=== PATIENT | male | born 1945 | race Caucasian/White ===

== ENCOUNTER 2018-03-17 15:25 | Emergency (ER) | payer MEDICARE ==
[~2018-03-17] VITALS: Ht 177.8 cm; Wt 88.5 kg
[~2018-03-17 15:25] MED LIST: ASPI325EC PO; CRUTCH4 USE; GABA100 PO; HYDACE10B PO; HYDACE5 PO; IBUP800 PO; LEVSOD150 PO; NAPR500 PO; TEMA15 PO
[2018-03-17 15:55] LABS: BASOPHILS ABSOLUTE AUTO 0.05 K/mm3 (0.00-0.23); BASOPHILS PERCENT AUTO 1 % (0-2); EOSINOPHILS ABSOLUTE AUTO 0.27 K/mm3 (0.00-0.68); EOSINOPHILS PERCENT AUTO 4 % (0-6); Hematocrit 41.9 % (37.0-53.0); Hemoglobin 14.7 g/dL (13.5-17.5); IMMATURE GRAN ABSOLUTE AUTO 0.01 K/mm3 (0.00-0.10); IMMATURE GRAN PERCENT AUTO 0 % (0-1); LYMPHOCYTES ABSOLUTE AUTO 1.93 K/mm3 (0.84-5.20); LYMPHOCYTES PERCENT AUTO 27 % (21-46); MONOCYTES ABSOLUTE AUTO 0.54 K/mm3 (0.16-1.47); MONOCYTES PERCENT AUTO 8 % (4-13); Mean Corpuscular HGB 31.4 pg (26.0-34.0); Mean Corpuscular HGB Conc 35.1 g/dL (31.5-36.5); Mean Corpuscular Volume 90 fL (80-100); Mean Platelet Volume 9.2 fL (9.1-12.4); NEUTROPHILS ABSOLUTE AUTO 4.28 K/mm3 (1.96-9.15); NEUTROPHILS PERCENT AUTO 61 % (41-73); Platelet Count 235 K/mm3 (150-400); RDW Coefficient Variation 12.5 % (11.7-14.2); Red Blood Cell Count 4.68 M/mm3 (4.30-5.90); White Blood Cell Count 7.08 K/mm3 (4.00-11.30)
[2018-03-17] MEDS ORDERED: Hydrocodone-Ap1 EA23 PO (15:57)
[2018-03-17] MEDS ORDERED: TERA5 PO (15:58)
[2018-03-17] MEDS ORDERED: Terazosin HCl10 MG (15:58)
[2018-03-17] MEDS ORDERED: CEFU50SU PO (15:58)
[2018-03-17] MEDS ORDERED: ESCI10 PO (15:58)
[2018-03-17 16:20] LABS: Alanine Aminotransfer (ALT/SGP 45 U/L (12-78); Albumin, Blood 3.9 g/dL (3.4-5.0); Albumin/Globulin Ratio 1.2 (0.8-1.8); Alk Phos 79 U/L (50-136); Anion Gap 7 mmol/L (6-16); Aspartate Aminotrans (AST/SGOT 49 U/L (12-37); Bilirubin, Total 0.3 mg/dL (0.1-1.0); Blood Urea Nitrogen 19 mg/dL (8-24); Bun/Creatinine Ratio 19.3 (12.0-20.0); CO2, Blood 24 mmol/L (21-32); Calcium, Blood 9.1 mg/dL (8.5-10.1); Chloride, Blood 109 mmol/L (98-108); Creatinine, Blood 0.99 mg/dL (0.60-1.20); Globulin, Blood 3.3 g/dL (2.2-4.0); Glomerular Filtration Rate >60 (60-); Glucose, Blood 104 mg/dL (70-99); Sodium, Blood 140 mmol/L (136-145); Total Protein, Blood 7.2 g/dL (6.4-8.2); Troponin I <0.015 ng/mL (0.000-0.040)
[2018-03-17] MEDS ORDERED: Nitrostat0.4 MG SL (18:11)
== END 2018-03-17 18:37 | disposition home or self-care (01) ==
LOC: ER 15:25
PROVIDERS: Emergency Medicine
DX: M79.602 Pain in left arm (principal); Z79.899 Other long term (current) drug therapy; Z79.82 Long term (current) use of aspirin; E03.9 Hypothyroidism, unspecified
CPT/HCPCS: 36415; 71046; 80053; 84484; 85025; 93005; 93010; 99284

== ENCOUNTER 2018-04-16 05:38 | Day surgery (SDC) | payer MEDICARE ==
[~2018-04-16] VITALS: Ht 172.7 cm; Wt 87.0 kg
[~2018-04-16 05:38] MED LIST changes: +CEFU50SU PO; +EPIPEN 2-P0.3 MG/0.3 IM; +ESCI10 PO; +Hydrocodone-Ap1 EA23 PO; +Hytrin2 MG PO; +Nitrostat0.4 MG SL; +SLEEP AID25 MG PO; +TERA5 PO; +Terazosin HCl10 MG
[2018-04-16] MEDS ORDERED: LISI5 PO (09:04)
[2018-04-16] MEDS ORDERED: ASPI81CH PO (09:04)
[2018-04-16] MEDS ORDERED: ROSU10TA PO (09:04)
== END 2018-04-16 12:02 | disposition home or self-care (01) ==
LOC: MHTC 05:38
PROC: B2111ZZ Fluoroscopy of Multiple Coronary Arteries using Low Osmolar Contrast (ICD-10-PCS; principal; 2018-04-16)
DX: I25.119 Atherosclerotic heart disease of native coronary artery with unspecified angina pectoris (principal); F17.200 Nicotine dependence, unspecified, uncomplicated; Z79.899 Other long term (current) drug therapy; Z79.82 Long term (current) use of aspirin
CPT/HCPCS: 93454; 99152; 99153; C1769; C1894; J1644; J2250; J3010; J7030; Q9967

== ENCOUNTER 2018-07-22 09:11 | Day surgery (SDC) | payer MEDICARE ==
[~2018-07-22] VITALS: Ht 172.7 cm; Wt 84.8 kg
[~2018-07-22 09:11] MED LIST changes: +ASPI81CH PO; +LISI5 PO; +ROSU10TA PO
[2018-07-22] MEDS ORDERED: NEBI5 (09:56)
== END 2018-07-22 11:49 | disposition home or self-care (01) ==
LOC: ORSCSDS 09:11
PROVIDERS: Internal Medicine Gastroenterology
PROC: 0DBL8ZX Excision of Transverse Colon, Via Natural or Artificial Opening Endoscopic, Diagnostic (ICD-10-PCS; principal; 2018-07-22 10:45)
PROC: 0DBN8ZX Excision of Sigmoid Colon, Via Natural or Artificial Opening Endoscopic, Diagnostic (ICD-10-PCS; principal; 2018-07-22 10:45)
DX: K62.5 Hemorrhage of anus and rectum (principal); D12.3 Benign neoplasm of transverse colon; D12.5 Benign neoplasm of sigmoid colon; K64.4 Residual hemorrhoidal skin tags; K62.89 Other specified diseases of anus and rectum; K57.30 Diverticulosis of large intestine without perforation or abscess without bleeding; Z87.891 Personal history of nicotine dependence; E78.5 Hyperlipidemia, unspecified; I10 Essential (primary) hypertension; E03.9 Hypothyroidism, unspecified; Z79.82 Long term (current) use of aspirin; Z79.899 Other long term (current) drug therapy
CPT/HCPCS: J7120

== ENCOUNTER → 2019-04-14 | Outpatient (CLI) | payer MEDICARE ==
[~2019-04-14] MED LIST changes: +NEBI5
[2019-04-14 16:20] LABS: BASOPHILS ABSOLUTE AUTO 0.06 K/mm3 (0.00-0.23); BASOPHILS PERCENT AUTO 1 % (0-2); EOSINOPHILS ABSOLUTE AUTO 0.21 K/mm3 (0.00-0.68); EOSINOPHILS PERCENT AUTO 3 % (0-6); Hematocrit 41.8 % (37.0-53.0); Hemoglobin 14.5 g/dL (13.5-17.5); IMMATURE GRAN ABSOLUTE AUTO 0.03 K/mm3 (0.00-0.10); IMMATURE GRAN PERCENT AUTO 0 % (0-1); LYMPHOCYTES ABSOLUTE AUTO 1.58 K/mm3 (0.84-5.20); LYMPHOCYTES PERCENT AUTO 19 % (21-46); MONOCYTES ABSOLUTE AUTO 0.74 K/mm3 (0.16-1.47); MONOCYTES PERCENT AUTO 9 % (4-13); Mean Corpuscular HGB 30.5 pg (26.0-34.0); Mean Corpuscular HGB Conc 34.7 g/dL (31.5-36.5); Mean Corpuscular Volume 88 fL (80-100); Mean Platelet Volume 9.6 fL (9.1-12.4); NEUTROPHILS ABSOLUTE AUTO 5.69 K/mm3 (1.96-9.15); NEUTROPHILS PERCENT AUTO 69 % (41-73); Platelet Count 226 K/mm3 (150-400); RDW Coefficient Variation 12.3 % (11.7-14.2); RDW Standard Deviation 39.6 fL (35.1-46.3); Red Blood Cell Count 4.76 M/mm3 (4.30-5.90); White Blood Cell Count 8.31 K/mm3 (4.00-11.30)
[2019-04-14 16:35] LABS: Alanine Aminotransfer (ALT/SGP 53 U/L (12-78); Albumin, Blood 3.8 g/dL (3.4-5.0); Albumin/Globulin Ratio 1.1 (0.8-1.8); Alk Phos 70 U/L (40-126); Anion Gap 10 mmol/L (6-16); Aspartate Aminotrans (AST/SGOT 45 U/L (12-37); Bilirubin, Total 0.4 mg/dL (0.1-1.0); Blood Urea Nitrogen 21 mg/dL (8-24); Bun/Creatinine Ratio 17.2 (12.0-20.0); CO2, Blood 25 mmol/L (21-32); Calcium, Blood 9.3 mg/dL (8.5-10.1); Chloride, Blood 104 mmol/L (98-108); Creatinine, Blood 1.22 mg/dL (0.60-1.20); Globulin, Blood 3.4 g/dL (2.2-4.0); Glomerular Filtration Rate 58 (60-); Glucose, Blood 97 mg/dL (70-99); Potassium, Blood 4.4 mmol/L (3.5-5.5); Sodium, Blood 139 mmol/L (136-145); Total Protein, Blood 7.2 g/dL (6.4-8.2)
[2019-04-14 16:55] LABS: Troponin I <0.017 ng/mL (0.000-0.040)
== END | disposition home or self-care (01) ==
LOC: LAB SHORT 16:15 → LAB EV 16:15
PROVIDERS: Physician Assistant
DX: R07.9 Chest pain, unspecified (principal)
CPT/HCPCS: 80053; 84484; 85025

== ENCOUNTER → 2020-12-10 | Outpatient (CLI) | payer MEDICARE ==
[2020-12-10 14:58] LABS: Source, Urine Clean Catch
[2020-12-10 17:56] LABS: Appearance, Urine Clear (Clear); Bilirubin, Urine Neg (Neg); Blood, Urine Neg (Neg); Color, Urine Yellow (P-Yellow); Glucose Qualitative, Urine Neg (Neg); Ketones, Urine Neg (Neg); Leukocyte Esterase, Urine Neg (Neg); Nitrite, Urine Neg (Neg); Protein, Urine Neg (Neg); Urobilinogen, Urine NORM (Normal)
== END | disposition home or self-care (01) ==
LOC: LAB 14:55 → LAB SHORT 14:55
PROVIDERS: Physician Assistant
DX: N39.0 Urinary tract infection, site not specified (principal)
CPT/HCPCS: 81003; 87086

== ENCOUNTER 2022-02-07 18:23 | Inpatient (IN) | payer MEDICARE ==
[~2022-02-07] VITALS: Ht 172.7 cm; Wt 79.4 kg
[2022-02-07 19:00] LABS: BASOPHILS ABSOLUTE AUTO 0.02 K/mm3 (0.00-0.23); BASOPHILS PERCENT AUTO 0 % (0-2); EOSINOPHILS ABSOLUTE AUTO 0.21 K/mm3 (0.00-0.68); EOSINOPHILS PERCENT AUTO 2 % (0-6); Hematocrit 47.5 % (37.0-53.0); Hemoglobin 16.1 g/dL (13.5-17.5); IMMATURE GRAN ABSOLUTE AUTO 0.04 K/mm3 (0.00-0.10); IMMATURE GRAN PERCENT AUTO 0 % (0-1); LYMPHOCYTES ABSOLUTE AUTO 1.98 K/mm3 (0.84-5.20); LYMPHOCYTES PERCENT AUTO 18 % (21-46); MONOCYTES ABSOLUTE AUTO 0.36 K/mm3 (0.16-1.47); MONOCYTES PERCENT AUTO 3 % (4-13); Mean Corpuscular HGB 30.1 pg (26.0-34.0); Mean Corpuscular HGB Conc 33.9 g/dL (31.5-36.5); Mean Corpuscular Volume 89 fL (80-100); Mean Platelet Volume 9.1 fL (9.1-12.4); NEUTROPHILS ABSOLUTE AUTO 8.62 K/mm3 (1.96-9.15); NEUTROPHILS PERCENT AUTO 77 % (41-73); Platelet Count 215 K/mm3 (150-400); RDW Coefficient Variation 12.2 % (11.7-14.2); RDW Standard Deviation 39.1 fL (35.1-46.3); Red Blood Cell Count 5.35 M/mm3 (4.30-5.90); White Blood Cell Count 11.23 K/mm3 (4.00-11.30)
[2022-02-07 19:19] LABS: Alanine Aminotransfer (ALT/SGP 52 U/L (12-78); Albumin, Blood 4.1 g/dL (3.4-5.0); Albumin/Globulin Ratio 1.2 (0.8-1.8); Alk Phos 76 U/L (50-136); Anion Gap 3 mmol/L (6-16); Aspartate Aminotrans (AST/SGOT 38 U/L (12-37); Bilirubin, Total 0.5 mg/dL (0.1-1.0); Blood Urea Nitrogen 16 mg/dL (8-24); Bun/Creatinine Ratio 16.1 (12.0-20.0); CO2, Blood 28 mmol/L (21-32); Calcium, Blood 9.3 mg/dL (8.5-10.1); Chloride, Blood 108 mmol/L (98-108); Creatinine, Blood 0.99 mg/dL (0.60-1.20); Globulin, Blood 3.3 g/dL (2.2-4.0); Glomerular Filtration Rate >60 (60-); Glucose, Blood 102 mg/dL (70-99); Potassium, Blood 4.1 mmol/L (3.5-5.5); Sodium, Blood 139 mmol/L (136-145); Total Protein, Blood 7.4 g/dL (6.4-8.2)
[2022-02-07 20:20] LABS: Source, Urine Clean Catch
[2022-02-07 20:23] LABS: Appearance, Urine Clear (Clear); Bilirubin, Urine Neg (Neg); Blood, Urine 1+ (Neg); Color, Urine Yellow (P-Yellow); Glucose Qualitative, Urine Neg (Neg); Ketones, Urine Neg (Neg); Leukocyte Esterase, Urine Neg (Neg); Nitrite, Urine Neg (Neg); Protein, Urine 1+ (Neg); Specific Gravity, Urine 1.015 (1.003-1.022); Urobilinogen, Urine NORM (Normal)
[2022-02-07 20:30] LABS: Bacteria Rare /hpf; Squamous Epithelial Cells Rare /hpf (Few); White Blood Cells, Urine 0-2 /hpf (0-5)
[2022-02-07 23:14] LABS: BASOPHILS ABSOLUTE AUTO 0.02 K/mm3 (0.00-0.23); BASOPHILS PERCENT AUTO 0 % (0-2); EOSINOPHILS PERCENT AUTO 0 % (0-6); Hematocrit 42.1 % (37.0-53.0); Hemoglobin 14.5 g/dL (13.5-17.5); IMMATURE GRAN ABSOLUTE AUTO 0.07 K/mm3 (0.00-0.10); IMMATURE GRAN PERCENT AUTO 1 % (0-1); LYMPHOCYTES ABSOLUTE AUTO 1.31 K/mm3 (0.84-5.20); LYMPHOCYTES PERCENT AUTO 9 % (21-46); MONOCYTES ABSOLUTE AUTO 0.62 K/mm3 (0.16-1.47); MONOCYTES PERCENT AUTO 4 % (4-13); Mean Corpuscular HGB 30.9 pg (26.0-34.0); Mean Corpuscular HGB Conc 34.4 g/dL (31.5-36.5); Mean Corpuscular Volume 90 fL (80-100); Mean Platelet Volume 9.1 fL (9.1-12.4); NEUTROPHILS ABSOLUTE AUTO 13.43 K/mm3 (1.96-9.15); NEUTROPHILS PERCENT AUTO 87 % (41-73); Platelet Count 191 K/mm3 (150-400); RDW Coefficient Variation 12.1 % (11.7-14.2); RDW Standard Deviation 39.7 fL (35.1-46.3); White Blood Cell Count 15.45 K/mm3 (4.00-11.30)
[2022-02-08 01:47] LABS: Influenza A, PCR NEGATIVE (NEGATIVE); Influenza B, PCR NEGATIVE (NEGATIVE); Resp Syncytial Virus, PCR NEGATIVE (NEGATIVE); SARS-Cov-2 (COVID-19) PCR, MMC NEGATIVE (NEGATIVE)
[2022-02-08] MEDS ORDERED: METO25ER PO (01:52)
--- NOTE | 2022-02-08 04:57 | NUR ---
PLUMBING MECHANIC SUMMARY NEW ADMIT FROM THE ED TONIGHT. PT ADMITTED FOR POSSIBLE APPENDICITIS. PT AAOX4 AND PLEASANT. REPORTED 10/10 PAIN TO R LOWER ABD WHEN HE ARRIVED TO FLOOR. MEDICATED WITH OXYCODONE 5 MG, PT ABLE TO SLEEP SOON AFTER. NPO SINCE MIDNIGHT IN PREP FOR POSSIBLE PROCEDURE LATER TODAY. VSS, WILL CONTINUE TO MONITOR.
[2022-02-08 06:16] LABS: BASOPHILS ABSOLUTE AUTO 0.03 K/mm3 (0.00-0.23); BASOPHILS PERCENT AUTO 0 % (0-2); EOSINOPHILS ABSOLUTE AUTO 0.01 K/mm3 (0.00-0.68); EOSINOPHILS PERCENT AUTO 0 % (0-6); Hematocrit 45.1 % (37.0-53.0); Hemoglobin 15.4 g/dL (13.5-17.5); IMMATURE GRAN ABSOLUTE AUTO 0.11 K/mm3 (0.00-0.10); IMMATURE GRAN PERCENT AUTO 1 % (0-1); LYMPHOCYTES ABSOLUTE AUTO 1.72 K/mm3 (0.84-5.20); LYMPHOCYTES PERCENT AUTO 8 % (21-46); MONOCYTES ABSOLUTE AUTO 0.76 K/mm3 (0.16-1.47); MONOCYTES PERCENT AUTO 4 % (4-13); Mean Corpuscular HGB 30.2 pg (26.0-34.0); Mean Corpuscular HGB Conc 34.1 g/dL (31.5-36.5); Mean Corpuscular Volume 88 fL (80-100); Mean Platelet Volume 9.5 fL (9.1-12.4); NEUTROPHILS PERCENT AUTO 87 % (41-73); Platelet Count 221 K/mm3 (150-400); RDW Coefficient Variation 12.4 % (11.7-14.2); RDW Standard Deviation 39.7 fL (35.1-46.3); White Blood Cell Count 20.63 K/mm3 (4.00-11.30)
[2022-02-08 06:36] LABS: Anion Gap 11 mmol/L (6-16); Blood Urea Nitrogen 15 mg/dL (8-24); CO2, Blood 21 mmol/L (21-32); Calcium, Blood 9.2 mg/dL (8.5-10.1); Chloride, Blood 107 mmol/L (98-108); Creatinine, Blood 0.88 mg/dL (0.60-1.20); Glomerular Filtration Rate >60 (60-); Glucose, Blood 153 mg/dL (70-99); Sodium, Blood 139 mmol/L (136-145)
--- NOTE | 2022-02-08 08:58 | NUR ---
PATIENT REPORTS HAVING DIFFICULTY VOIDING, HAS FREQUENTLY BEEN TRYING TO VOID BUT ONLY ABLE TO GET 25-[address] NEWMAN AT BEDSIDE, BLADDER SCAN OBTAINED, 711. DR NEWMAN WANTS TO HOLD OFF ON CATHETER FOR NOW, WILL TAKE HIM TO OR THIS AM AND WILL DO CATHETER IN OR.
--- NOTE | 2022-02-08 09:18 | NUR ---
PRE-OP SURGICAL SITE PREVENTION COMPLETED INCLUDING CHG WIPES SHOULDER TO TOES, NOZIN NASAL SWAB TO BOTH NARES, & PERIDEX ORAL RINSE.
--- NOTE | 2022-02-08 09:38 | NUR ---
PT TO OR WITH CYNDIE TURNER & CYNDIE RICE VIA HIS BED.
--- NOTE | 2022-02-08 12:08 | NUR ---
02/08/22 1208 Galdino Gibson ALMARAZ PLACED BY ORD.DXS AFTER PATIENT WENT TO SLEEP WITH STERILE TECHNIQUE AND 14FR COUDE CATHETER. BETADINE PREP. PLACED WITHOUT DIFFICULTY AND INFLATED WITH 10CC STERILE WATER. 1200CC DARK YELLOW CLEAR URINE IN ALMARAZ NOTED AT 1200. NOTIFIED. PT ON SCHEDULED UNASYN TO OR WITH ADDITIONAL DOSE GIVEN AT 1158
--- NOTE | 2022-02-08 13:15 | NUR ---
PATIENT RETURNED TO ROOM FROM OR. VSS ON 3L OR VIA NC. X2 LAP SITES W/ DERMABOND, C/D/I, EMMA DRAIN TO LLQ W/ GAUZE & TEGADERM, C/D/I, DRAINING CLEAR RED FLUID. ALMARAZ IN PLACE DRAINING CLEAR YELLOW URINE.
--- NOTE | 2022-02-08 18:07 | NUR ---
SHIFT SUMMARY NO ACUTE CHANGES SINCE ARRIVAL BACK TO UNIT. VSS ON RA, SATS MAINTAINING >94% ON RA. MOODERATE ABDOMINAL PAIN, MEDICATED X1 PER EMAR. TOLERATING CLEAR LIQUID DIET, DENIES N/V. ALMARAZ IN PLACE, DRAINING CLEAR YELLOW URINE. X2 LAP SITES TO ABDOMEN W/ DERMABOND REMAIN C/D/I. EMMA DRAIN IN PLACE DRAINING SEROSANGUINEOUS FLUID. REMAINS AT BEDIDE, CALL LIGHT IN REACH, WILL REPORT TO ONCOMING RN.
[2022-02-09 04:26] LABS: BASOPHILS ABSOLUTE AUTO 0.01 K/mm3 (0.00-0.23); BASOPHILS PERCENT AUTO 0 % (0-2); EOSINOPHILS PERCENT AUTO 0 % (0-6); Hematocrit 40.3 % (37.0-53.0); Hemoglobin 13.8 g/dL (13.5-17.5); IMMATURE GRAN ABSOLUTE AUTO 0.18 K/mm3 (0.00-0.10); IMMATURE GRAN PERCENT AUTO 1 % (0-1); LYMPHOCYTES ABSOLUTE AUTO 1.46 K/mm3 (0.84-5.20); LYMPHOCYTES PERCENT AUTO 8 % (21-46); MONOCYTES ABSOLUTE AUTO 0.44 K/mm3 (0.16-1.47); MONOCYTES PERCENT AUTO 2 % (4-13); Mean Corpuscular HGB 30.8 pg (26.0-34.0); Mean Corpuscular HGB Conc 34.2 g/dL (31.5-36.5); Mean Corpuscular Volume 90 fL (80-100); Mean Platelet Volume 9.4 fL (9.1-12.4); NEUTROPHILS ABSOLUTE AUTO 16.03 K/mm3 (1.96-9.15); NEUTROPHILS PERCENT AUTO 88 % (41-73); Platelet Count 182 K/mm3 (150-400); RDW Coefficient Variation 12.8 % (11.7-14.2); RDW Standard Deviation 42.2 fL (35.1-46.3); Red Blood Cell Count 4.48 M/mm3 (4.30-5.90); White Blood Cell Count 18.12 K/mm3 (4.00-11.30)
--- NOTE | 2022-02-09 05:47 | NUR ---
RECIEVED HAND OFF FROM Sean MARRUFO RN USING SBAR. LYING IN LOW FOWLERS WITH EYES OPEN AND AT BEDSIDE. AAO X4, SMITH, FOLLOWS ALL COMMANDS. REORIENTED TO ROOM, CALL SYSTEM, AND POC, HE AND SPOUSE VOICE UNDERSTANDING. REFUSES ENCOURAGEMENT TO GET OOB AND AMBULATE, STATES WILL TRY IN AM. RESPIRATIONS EVEN AND UNLABORED ON ROOM AIR. LUNG SOUNDS CLEAR BILATERALLY. ABDOMEN FIRM WITH HYPOACTIVE BOWEL TONES NOTED. ALMARAZ CATH IN PLACE WHILE IN OR D/T URINARY RETENTION IS PATENT, DRAINING CLEAR YELLOW URINE TO GRAVITY. CONTINENT OF BOWEL. RIGHT FA 18G PIV IS PATENT, INFUSING LR AT 100ML/HR. SCD'S TO BLE PER ORDERS. LAP SITES X2 NOTED TO UMBILICAUS AND SUPRA PUBIC AREA. LLQ EMMA DRAIN IN PLACE, WITH DEPRESSED BULB DRAINING SS FLUID. MEDICATED SEVERAL TIMES THIS SHIFT WITH PO PAIN MEDS PER EMAR. AFTER EBB AND JAZMINE OF PAIN BECAME UNBEARABLE TO PT AND WAS TOO SOON FOR PO MEDS, IVP MEDS ADMINISTERED PER EMAR. VOICES IMMEDIATE RELIEF. DENIES FURTHER NEEDS OR WANTS AT THIS TIME. SAFETY MEASURES IN PLACE. WILL CONTINUE TO MONITOR AND ADDRESS NEEDS THEY ARISE. WILL GIVE HAND OFF TO ONCOMING SHIFT USING SBAR.
--- NOTE | 2022-02-09 17:42 | NUR ---
SHIFT SUMMARY POD 1 LAP APPY. TOLERATING PO CLEAR LIQUIDS WELL, DENIES N/V, REPORTS PASSING FLATUS FREQUENTLY & BURPING FREQUENTLY, VANIA BM YET. AMBULATING TO BR WELL & WITHIN ROOM. ALMARAZ CATH IN PLACE D/T RETENTION, ORDERED TO KEEP IN PER DR. NEWMAN. WILL REPORT TO ONCOMING RN.
[2022-02-10 04:40] LABS: BASOPHILS ABSOLUTE AUTO 0.03 K/mm3 (0.00-0.23); BASOPHILS PERCENT AUTO 0 % (0-2); EOSINOPHILS ABSOLUTE AUTO 0.06 K/mm3 (0.00-0.68); EOSINOPHILS PERCENT AUTO 0 % (0-6); Hematocrit 36.2 % (37.0-53.0); Hemoglobin 12.3 g/dL (13.5-17.5); IMMATURE GRAN ABSOLUTE AUTO 0.05 K/mm3 (0.00-0.10); IMMATURE GRAN PERCENT AUTO 0 % (0-1); LYMPHOCYTES ABSOLUTE AUTO 1.99 K/mm3 (0.84-5.20); LYMPHOCYTES PERCENT AUTO 15 % (21-46); MONOCYTES ABSOLUTE AUTO 0.67 K/mm3 (0.16-1.47); MONOCYTES PERCENT AUTO 5 % (4-13); Mean Corpuscular HGB 30.8 pg (26.0-34.0); Mean Corpuscular Volume 91 fL (80-100); Mean Platelet Volume 9.8 fL (9.1-12.4); NEUTROPHILS ABSOLUTE AUTO 10.56 K/mm3 (1.96-9.15); NEUTROPHILS PERCENT AUTO 79 % (41-73); Platelet Count 159 K/mm3 (150-400); RDW Standard Deviation 42.6 fL (35.1-46.3); Red Blood Cell Count 3.99 M/mm3 (4.30-5.90); White Blood Cell Count 13.36 K/mm3 (4.00-11.30)
[2022-02-10 04:58] LABS: Albumin, Blood 2.6 g/dL (3.4-5.0); Anion Gap 5 mmol/L (6-16); Blood Urea Nitrogen 15 mg/dL (8-24); Bun/Creatinine Ratio 17.4 (12.0-20.0); CO2, Blood 25 mmol/L (21-32); Calcium, Blood 8.4 mg/dL (8.5-10.1); Chloride, Blood 110 mmol/L (98-108); Creatinine, Blood 0.86 mg/dL (0.60-1.20); Glomerular Filtration Rate >60 (60-); Glucose, Blood 101 mg/dL (70-99); Phosphorus, Blood 1.8 mg/dL (2.5-4.9); Potassium, Blood 3.9 mmol/L (3.5-5.5); Sodium, Blood 140 mmol/L (136-145)
--- NOTE | 2022-02-10 05:16 | NUR ---
PT CALLED STAFF STATING THAT HE IS EXPERIENCING SHORTNESS OF BREATH. HE STATES THAT IT STARTED ABOUT HALF AN HOUR AGO. ON EXAM, HE HAS CRACKLES IN THE RLL. IV FLUIDS STOPPED. VSS, MAINTAINING SATS ORA. HE DOES HAVE A FLUID IMBALANCE PER CHARTING IN THE COMPUTER. ON-CALL DOCTOR NOTIFIED, ORDERS FOR TROPONING, CHEST X-RAY AND EKG OBTAINED.
--- NOTE | 2022-02-10 07:49 | NUR ---
SHIFT SUMMARY: PAOLA IS A&OX4. VSS, PT REPORTS IMPROVEMENT IN SOB AFTER ADMINISTRATION OF 20 MG OF LASIX. SUNG PATENT, TOLERATING CLEARS WELL, REPORTS FEELING QUITE HUNGRY THIS MORNING. HE IS INDEPENDENT IN THE ROOM, AT BEDSIDE. EMMA WITH MINIMAL DRAINAGE THIS SHIFT, LAP SITES C/D&I. IV TO LEFT HAND PATENT, SALINE LOCKED AFTER ANTIBIOTIC ADMINISTRATION. HE IS LYING IN BED WITH THE CALL LIGHT IN REACH WHICH HE USES APPROPRIATELY. REPORT GIVEN TO DAY SHIFT RN.
--- NOTE | 2022-02-10 16:54 | NUR ---
SHIFT SUMMARY ALERT AND ORIENTED THROUGHOUT SHIFT. TOLERATING CLEAR LIQUIDS. ROUTINE ABX. GOOD OUTPUT PER ALMARAZ CLEAR YELLOW URINE. ABD INCISIONS C/D/I. EMMA WITH SMALL AMOUNT RED OUTPUT. PAIN CONTROLLED WITH PO PAIN MEDS. WALKS IN HALLS WITH SPOUSE. WILL REPORT TO ELECTRONIC SCANNER OPERATOR RN.
[2022-02-11 03:55] LABS: BASOPHILS ABSOLUTE AUTO 0.03 K/mm3 (0.00-0.23); BASOPHILS PERCENT AUTO 0 % (0-2); EOSINOPHILS ABSOLUTE AUTO 0.13 K/mm3 (0.00-0.68); EOSINOPHILS PERCENT AUTO 1 % (0-6); Hematocrit 40.3 % (37.0-53.0); Hemoglobin 13.9 g/dL (13.5-17.5); IMMATURE GRAN ABSOLUTE AUTO 0.07 K/mm3 (0.00-0.10); IMMATURE GRAN PERCENT AUTO 1 % (0-1); LYMPHOCYTES ABSOLUTE AUTO 1.84 K/mm3 (0.84-5.20); LYMPHOCYTES PERCENT AUTO 17 % (21-46); MONOCYTES PERCENT AUTO 6 % (4-13); Mean Corpuscular HGB 30.6 pg (26.0-34.0); Mean Corpuscular HGB Conc 34.5 g/dL (31.5-36.5); Mean Corpuscular Volume 89 fL (80-100); Mean Platelet Volume 9.3 fL (9.1-12.4); NEUTROPHILS ABSOLUTE AUTO 8.17 K/mm3 (1.96-9.15); NEUTROPHILS PERCENT AUTO 75 % (41-73); Platelet Count 187 K/mm3 (150-400); RDW Coefficient Variation 12.7 % (11.7-14.2); RDW Standard Deviation 41.4 fL (35.1-46.3); Red Blood Cell Count 4.54 M/mm3 (4.30-5.90); White Blood Cell Count 10.94 K/mm3 (4.00-11.30)
--- NOTE | 2022-02-11 05:01 | NUR ---
PATIENT REPORTED 9/10 PAIN AT START OF SHIFT, LOCALIZED TO ABDOMEN, RADIATING TOWARD PERINEAL AREA. SHARP QUALITY, ABDOMEN FIRM, TENDER, AND MODERATLY DISTENDED. MEDICATED PER EMAR. EDUCATED PATIENT AND ABOUT S/S OF INFECTION/SEPSIS TO REPORT. PATIENT FINISHED MEAL AFTER APPITITE RETURNED, AMBULATED IN HALLWAY WITH 'S ASSISTANCE REPORTED 5/10 PAIN DURING AMBULATION. WHEN ACTIVITY WAS COMPLETED PATIENT REPORTED 2/10 PAIN WHILE RESTING IN BED. PATIENT REPORTED AWAKENED APPORXIMATELY 0045 BY SEVERE PAIN THEN AMBULATED TO BATHROOM, REPORTED NAUSEA, DIAPHORESIS AND BEING UNABLE TO PASS A BM OR FLATUS. MEDICATED PER EMAR, INCREASED SEROPERULENT DRAINAGE FROM EMMA DRAIN IN LLQ, NO FOUL ODOR, DRESSING WET. DRESSING REPLACED. ABDOMEN FIRM, MODERATLY DISTENDED, TENDER AROUND EMMA DRAIN INSERTION. BOWEL SOUNDS PRESENT THROUGHOUT. PT REPORTED ADEQUATE PAIN CONTROL DURING REASSESSMENT. PATIENT REPORTS DIFFICULTY SLEEPING THROUGHOUT NIGHT, CALL LIGHT WITHIN REACH, PATIENT RESTING ON RIGHT SIDE LAYING POSITION, REPORTS ADEQUATE PAIN CONTROL. PT HAD INCREASED SEROPURULENT DRAINAGE FROM EMMA DRAIN DURING SHIFT. ALMARAZ CATHETHER IN USE, STAT LOCKED ON R. MEDIAL THIGH, URINE DRAINAGE ADEQUATE, TRANSPARENT YELLOW. IV SALINE LOCKED IN LAC. WILL CONTINUE TO MONITOR UNTIL REPORT GIVEN TO DAY SHIFT.
--- NOTE | 2022-02-11 09:00 | NUR ---
DR. NEWMAN AT BEDSIDE, CHANGED DRESSING ON EMMA DRAIN SITE. DRESSING SATURATED W/ YELLOW FLUID. REPLACED W/ GAUZE 4X4 AND MEDIPORE TAPE.
--- NOTE | 2022-02-11 10:46 | NUR ---
EMMA DRESSING SATURATED W/ YELLOW FLUID. REMOVED, CLEANED W/ NS @ REPLACED W/ 4X4 GAUZE & TAPE. DR. NEWMAN AWARE AND STATES IT IS OKAY TO CHANGE IT NEEDED.
--- NOTE | 2022-02-11 16:43 | NUR ---
SHIFT SUMMARY VSS ON RA T/O SHIFT. MOD ABD DISTENTION HAS REMAINED THE SAME. PT HAS STRUGGLED W/ PAIN MANAGEMENT T/O SHIFT, MEDICATED PER EMAR, REPORTS 5-8/10 PAIN TO ABDOMEN. EMMA DRAIN DRESSING CHANGED X3 TIMES, EMMA DRAIN OUTPUT ABOUT 145 AT THIS TIME. ALMARAZ REMAINS IN PLACE, DRAINING CLEAR, DARK YELLOW URINE. UP TO CHAIR X1, ENCOURAGED MOVEMENT & AMBULATION. WILL REPORT TO ONCOMING RN.
--- NOTE | 2022-02-12 06:32 | NUR ---
POD 4 S/P LAP APPY. PT VSS T/O NIGHT. INCISIONS CDI. EMMA DRNG YELLOW FLUID, CONT TO LEAK AROUND SITE. DRESSING CHANGED X2 THIS SHIFT. PT MED FOR PAIN X1 W/REP RELIEF. ABD LESS DISTENDED, PT PASSING FLATUS, HAD 1 BM. PT DENIED N/V. ALMARAZ DRNG YELLOW URINE. PT AMB INDEP IN HALLS W/ AT SIDE.
--- NOTE | 2022-02-12 14:00 | NUR ---
EMMA DRAIN LEAKING AROUND INSERTION. DRESSING CHANGED, AREA CLEANED WITH WATER. CLEAN GAUZE DRESSING PLACED.
--- NOTE | 2022-02-12 15:17 | NUR ---
PATIENT OUT OF ROOM VIA W/C W/ INTERNATIONAL TRADE TEACHER FOR CT SCAN.
--- NOTE | 2022-02-12 15:32 | NUR ---
PATIENT RETURNED TO ROOM. NO ACUTE CHANGES.
--- NOTE | 2022-02-12 18:33 | NUR ---
[facility]/ ARISTIDES LOPEZ RN. GREEN FLUID DRAINING THROUGH TUBING. CONNECTED TO LOW INT SUCTION.
--- NOTE | 2022-02-12 18:54 | NUR ---
SHIFT SUMMARY VSS ON RA, IND IN ROOM W/ ASSISTANCE FORM . MOD ABDOMINAL DISTENTION THAT HAS PROGRESSED T/O SHIFT. TOLERATED FULL LIQUID DIET, DENIES N/V, DENIES FLATUS, & NO BM. STRUGGLED WITH PAIN MANAGEMENT, REPORTS MINIMAL RELIEF WITH ALL PAIN MEDICATIONS. AMBULATED HALLWAYS X2. CT DONE TODAY ABOUT 1600 & DR NEWMAN ORDERED TO PLACE NG TUBE. NG PLACED, TO WALL SUCTIN, LOW INTERMITENT. GREEN/YELLOW FLUID DRAINING AT THIS TIME & PT REPORTS MUCH RELIEF. PT IS NOW NPO W/ ICE CHIPS. ALMARAZ REMAINS IN PLACE & EMMA IN PLACE TO LLQ, DRAINING YELLOW FLUID. WILL REPORT TO ONCIMING RN.
--- NOTE | 2022-02-13 07:46 | NUR ---
POD 5 S/P LAP APPY. PT HAD DIFFICULT NIGHT. NGT PUT OUT 600 ML THICK GREEN DRNG. PT C/O NAUSEA THIS AM, ZOFRAN GIVEN PER EMAR. ABD REMIANS FIRM AND DISTENDED, BT HYPO, PT REP NO FLATUS YET. EMMA HAD 50ML LIGHT YELLOW DRNG, LESS LEAKING AROUND DRAIN. PAIN MGD PER EMAR. IVF AND ABX CONT PER ORDERS. ALMARAZ PATANT DRNG YELLOW URINE. PT SLEPT RESTLESSLY, REP NO SIG HELP FROM BENADRYL. SUPPORTIVE AT BEDSIDE.
--- NOTE | 2022-02-13 08:07 | NUR ---
PT RESTING IN BED, REPORTS BEING "MISERABLE", "NOTHING HELPS WITH PAIN" & REPORTS NOT SLEEPING HARDLY AT ALL T/O THE NIGHT. DRESSING ON EMMA DRAIN SATURATED IN YELLOW FLUID, REMOVED, CLEANED W/ NS & CHANGED. ENCOURAGED MOBILITY/AMBULATION. PT WANTS TO REST AT THIS TIME. REMAINS AT BEDISDE, ALSO ENCOURAGED HER TO GO HOME AND GET SOME REST AND TAKE CARE OF HERSELF WELL. SHE REPORTS BEING VERY CONCERNED AND WORRIED WHEN AWAY FROM HIM.
--- NOTE | 2022-02-13 10:00 | NUR ---
NG TUBE CLAMPED FOR PATIENT TO GO TO IMAGING TO BEGIN SMALL BOWEL FOLLOW STEVEN. IMAGING REPORTED THAT SUCTION CAN NOT BE HOOKED BACK UP UNTIL LATER, AFTER REPEAT IMAGES.
--- NOTE | 2022-02-13 11:22 | NUR ---
DR NEWMAN AT BEDSIDE, REMOVED EMMA DRAIN & COVERED W/ GAUZE & PAPER TAPE. PT TOLERATED WELL.
--- NOTE | 2022-02-13 14:42 | NUR ---
NG TUBE BACK TO LOW INT SUCTION AT THIS TIME. DRAINING DARK GREEN FLUID.
--- NOTE | 2022-02-13 17:51 | NUR ---
SHIFT SUMMARY VSS ON RA. ABDOMEN REMAINS FIRM AND PAINFUL TO PATIENT MOST OF THE SHIFT. NG TUBE WAS CLAMPED FROM ABOUT 1000 TO 1600 TODAY FOR SMALL BOWEL FOLLOW THROUGH. PATIENT FELT "MISERABLE & CRAPPY", UP TO BR MULTIPLE TIMES W/ LIQUID BM'S & REPORTS PASSING FLATUS. WHEN NG TUBE WAS RECONNECTED TO SUCTION, ABOUT 1500ML IMMEDIATELY CAME THROUGH NG * PT FELT RELIEF TO ABDOMEN. EMMA DRAIN WAS REMOVED THIS AM BY DR NEWMAN, GAUZE & TAPE OVER SITE, C/D/I. ALMARAZ REMAINS IN PLACE. PATIENT REMAINS NPO W/ SIPS & CHIPS, DENIES ANY N/V. WILL REPORT TO ONCOMING RN.
--- NOTE | 2022-02-14 05:20 | NUR ---
SUMMARY NO NEW CHANGES. PT PAIN MANAGED WELL PER EMAR. PT NG TUBE DRAING. PT DENIES N/V. PT HAS SLEPT FOR SEVERAL HOURS THIS SHIFT. PT CURRENTLY SLEEPING IN NO DISTRESS. CALL LIGHT IN REACH.
[2022-02-14 08:24] LABS: Hematocrit 45.2 % (37.0-53.0); Hemoglobin 15.2 g/dL (13.5-17.5); Mean Corpuscular HGB 30.6 pg (26.0-34.0); Mean Corpuscular HGB Conc 33.6 g/dL (31.5-36.5); Mean Corpuscular Volume 91 fL (80-100); Mean Platelet Volume 9.5 fL (9.1-12.4); Platelet Count 289 K/mm3 (150-400); RDW Coefficient Variation 12.9 % (11.7-14.2); RDW Standard Deviation 42.9 fL (35.1-46.3); Red Blood Cell Count 4.96 M/mm3 (4.30-5.90); White Blood Cell Count 12.07 K/mm3 (4.00-11.30)
[2022-02-14 08:48] LABS: Anion Gap 5 mmol/L (6-16); BAND PERCENT MAN 2 % (0-8); BASOPHILS PERCENT MAN 0 % (0-2); Blood Urea Nitrogen 21 mg/dL (8-24); Bun/Creatinine Ratio 17.6 (12.0-20.0); CO2, Blood 29 mmol/L (21-32); Calcium, Blood 9.4 mg/dL (8.5-10.1); Chloride, Blood 111 mmol/L (98-108); Creatinine, Blood 1.19 mg/dL (0.60-1.20); EOSINOPHILS PERCENT MAN 0 % (0-6); Glomerular Filtration Rate 59 (60-); Glucose, Blood 99 mg/dL (70-99); LYMPHOCYTES ABSOLUTE MAN 2.41 K/mm3 (0.84-5.20); LYMPHOCYTES PERCENT MAN 20 % (21-46); MONOCYTES ABSOLUTE MAN 1.08 K/mm3 (0.16-1.47); MONOCYTES PERCENT MAN 9 % (4-13); NEUTROPHILS ABSOLUTE MAN 8.56 K/mm3 (1.96-9.15); Potassium, Blood 3.8 mmol/L (3.5-5.5); SEG NEUTROPHILS PERCENT MAN 69 % (41-73); Sodium, Blood 145 mmol/L (136-145); TOTAL CELLS COUNTED 100; Triglycerides 153 mg/dL (30-160)
--- NOTE | 2022-02-14 18:32 | NUR ---
SHIFT SUMMARY PATIENT ALERT AND ORIENTED THROUGHOUT SHIFT. PULLED NG AT BEGINNING OF SHIFT. NG REPLACED AND 850 OUTPUT THIS SHIFT. ABD MOD DISTENDED AND TENDER. SMALL LIQUID GREEN STOOL THIS SHIFT. TOLERATING SIPS OF WATER AND ICE CHIPS. LAP SITES C/D/I. PICC LINE PLACED AND TPN STARTED. ALMARAZ PATENT AND DRAINING. AMBULATED IN ROOM WITH SBA WITH LINES. MEDICATED FOR PAIN IV PRN. WILL REPORT TO IRRIGATIONIST RN.
[2022-02-15 05:37] LABS: Hematocrit 38.9 % (37.0-53.0); Hemoglobin 13.2 g/dL (13.5-17.5); Mean Corpuscular HGB 30.9 pg (26.0-34.0); Mean Corpuscular HGB Conc 33.9 g/dL (31.5-36.5); Mean Corpuscular Volume 91 fL (80-100); Mean Platelet Volume 9.3 fL (9.1-12.4); Platelet Count 250 K/mm3 (150-400); RDW Coefficient Variation 12.7 % (11.7-14.2); RDW Standard Deviation 42.3 fL (35.1-46.3); Red Blood Cell Count 4.27 M/mm3 (4.30-5.90); White Blood Cell Count 12.64 K/mm3 (4.00-11.30)
[2022-02-15 05:49] LABS: Anion Gap 4 mmol/L (6-16); Blood Urea Nitrogen 21 mg/dL (8-24); CO2, Blood 28 mmol/L (21-32); Calcium, Blood 8.4 mg/dL (8.5-10.1); Chloride, Blood 110 mmol/L (98-108); Creatinine, Blood 0.91 mg/dL (0.60-1.20); Glomerular Filtration Rate >60 (60-); Glucose, Blood 118 mg/dL (70-99); Potassium, Blood 3.8 mmol/L (3.5-5.5); Sodium, Blood 142 mmol/L (136-145)
--- NOTE | 2022-02-15 08:26 | NUR ---
SUMMARY I SPOKE WITH DR HARO LAST NIGHT REGARDING PTS CURRENT MED ORDERS AND NOT CLEAR IF CRUSHING SOME AND PUTTING DOWN NG? OR HOLD? ALSO SPOKE REGARDING PT ORDER FOR METOPROLOL,BUT IS EXTENDED RELEASE AND UNABLE TO BE CRUSHED.ALSO DISCUSSED PTS VS WITH DR HARO.DR HARO OK TO HOLD MEDS TONIGHT AND PLANS TO ADDRESS MED ISSUES 02/15 WITH ROUNDING. PT AND ADVISED. PT REPORTS FEELING INCREASED BLOATING TONIGHT COMPARED TO YESTERDAY AFTERNOON, ALTHOUGH OUTPUT OF NG CONT LARGE VOLUME.PT ALSO TOOK ZYPREXA ODT FOR SLEEP AND DILAUDID FOR PAIN AND STILL NOT SLEEPING SOLID.PT REPORTS SEVERAL DAYS OF POOR SLEEP.VERBAL ZYPREXA PRIOR NIGHT EFFECTIVE. VERB SHE FEELS PT IS ALSO WORRYING ABOUT INCREASED BLOATING AND FEELS THAT MAY BE CAUSING SOME OF THE POOR SLEEPING.ALSO, PT C/O SORE THROAT R/T TUBE.DAY RN AGREES TO ADDRESS WITH ROUNDING.
[2022-02-15 08:45] LABS: Magnesium, Blood 2.4 mg/dL (1.6-2.4); Phosphorus, Blood 2.5 mg/dL (2.5-4.9)
--- NOTE | 2022-02-15 19:37 | NUR ---
SHIFT SUMMARY PT A&OX4, VSS/RA, NG LIS W/600 OUT THIS SHIFT, PICC PRIYANK INFUSING ABX PER EMAR AND PPN @ 75 MLS/HR, ALMARAZ PATENT & DRAINING YELLOW URINE, STAT LOCK ON, OFF FLOOR, MULTI SMALL LIQUID BMS TODAY. NPO/SIPS H20 & MEDS WITH SIPS. POD7 LAP APPY, LAP INCISIONS CDI, EMMA INCISION W/GAUZE/TAPE CHANGED 3X THIS SHIFT. REPORT PROVIDED TO DESHAWN AGEE.
--- NOTE | 2022-02-16 04:07 | NUR ---
SHIFT SUMMARY A/O X4- POD8 APPENDECTOMY WITH POSTOP ILEUS. NG TUBE TO LOW INTERMEDIATE SUCTION, DRAINING DARK GREENISH BROWN FLUID. ALMARAZ DRAINING TO GRAVITY. NO NAUSEA OR VOMITING THIS SHIFT. PAIN MANAGED WITH IV PAIN MEDICATION. STAND BY ASSIST TO BEDSIDE COMMODE, VERY SMALL AMOUNT OF BOWEL PASSED X1. PT REPORTS PASSING FLATUS. VITAL SIGNS STABLE. WILL CONTINUE TO MONITOR AND REPORT TO ONCOMING RN.
[2022-02-16 10:01] LABS: Magnesium, Blood 2.9 mg/dL (1.6-2.4)
[2022-02-16 10:04] LABS: Phosphorus, Blood 8.2 mg/dL (2.5-4.9)
--- NOTE | 2022-02-16 18:43 | NUR ---
SHIFT SUMMARY POD8 LAP APPY SITES CDI, EMMA SITE W/GAUZE/TAPE SEROUS DC, NG LIS WITH 400 GREEN FLUID OUT. ALMARAZ PATENT & DRAINING YELLOW URINE, STAT LOCK ON, OFF FLOOR. BM TODAY-MEDIUM, GREEN LIQUID/SOFT UNFORMED. PICC PRIYANK, FLUSHES/INFUSES DOES NOT DRAW; IV ABX INFUSED PER EMAR; PPN @ 94 MLS/HR. PAIN MANAGED WITH 1 MG DILAUDID PRN, GIVEN 3X TODAY. AT BEDSIDE. REPORT PROVIDED TO DESHAWN AGEE.
[2022-02-17 04:54] LABS: BASOPHILS ABSOLUTE AUTO 0.05 K/mm3 (0.00-0.23); BASOPHILS PERCENT AUTO 0 % (0-2); EOSINOPHILS ABSOLUTE AUTO 0.53 K/mm3 (0.00-0.68); EOSINOPHILS PERCENT AUTO 4 % (0-6); Hemoglobin 14.3 g/dL (13.5-17.5); IMMATURE GRAN ABSOLUTE AUTO 0.07 K/mm3 (0.00-0.10); IMMATURE GRAN PERCENT AUTO 1 % (0-1); LYMPHOCYTES ABSOLUTE AUTO 2.79 K/mm3 (0.84-5.20); LYMPHOCYTES PERCENT AUTO 22 % (21-46); MONOCYTES ABSOLUTE AUTO 0.67 K/mm3 (0.16-1.47); MONOCYTES PERCENT AUTO 5 % (4-13); Mean Corpuscular HGB 30.2 pg (26.0-34.0); Mean Corpuscular HGB Conc 33.3 g/dL (31.5-36.5); Mean Corpuscular Volume 91 fL (80-100); Mean Platelet Volume 9.5 fL (9.1-12.4); NEUTROPHILS ABSOLUTE AUTO 8.63 K/mm3 (1.96-9.15); NEUTROPHILS PERCENT AUTO 68 % (41-73); Platelet Count 261 K/mm3 (150-400); RDW Coefficient Variation 12.5 % (11.7-14.2); RDW Standard Deviation 41.6 fL (35.1-46.3); Red Blood Cell Count 4.74 M/mm3 (4.30-5.90); White Blood Cell Count 12.74 K/mm3 (4.00-11.30)
[2022-02-17 05:10] LABS: Magnesium, Blood 2.5 mg/dL (1.6-2.4); Phosphorus, Blood 3.1 mg/dL (2.5-4.9)
--- NOTE | 2022-02-17 05:11 | NUR ---
SHIFT SUMMARY A/O X4- STAND BY ASSIST DUE TO LINES AND DRAINS. POD9 LAP APPY WITH POST OP ILEUS. NG TUBE DRAINING GREEN FLUID ON INTERMITTENT SUCTION, 500ML THIS SHIFT, IRRIGATED DUE TO SEDEMENT IN TUBE. ALMARAZ DRAINING TO GRAVITY, CATH CARE PERFORMED. PAIN BEING MANAGED WITH IV PAIN MEDICATION. ONE SMALL BOWEL MOVEMENT REPORTED DURING DAY SHIFT, PT STATES HE HAS NOT PASSED FLATUS SINCE YESTERDAY AM. PT STATES ABDOMEN FEELS MORE DISTENDED THIS AM. VSS. WILL CONTINUE TO MONITOR AND REPORT TO ONCOMING RN.
[2022-02-17 05:25] LABS: Anion Gap 6 mmol/L (6-16); Blood Urea Nitrogen 12 mg/dL (8-24); Bun/Creatinine Ratio 15.3 (12.0-20.0); CO2, Blood 26 mmol/L (21-32); Calcium, Blood 8.9 mg/dL (8.5-10.1); Chloride, Blood 106 mmol/L (98-108); Creatinine, Blood 0.78 mg/dL (0.60-1.20); Glomerular Filtration Rate >60 (60-); Glucose, Blood 117 mg/dL (70-99); Potassium, Blood 4.1 mmol/L (3.5-5.5); Sodium, Blood 138 mmol/L (136-145)
--- NOTE | 2022-02-17 16:02 | NUR ---
PATIENT TO DAY SURGERY VIA QUENTIN Cedeno/ CYNDIE HARTLEY. NG TUBE CLAMPED AT THIS TIME.
--- NOTE | 2022-02-18 04:19 | NUR ---
SHIFT SUMMARY A/O X4- POST OP DAY 10 LAP APPY WITH POST OP ILEUS, AND POST OP DAY 1 FOR LAP DRAINAGE OF INTRA-ABDOMINAL ABCESS. LAP SITES X4 WILDA WITH DERMABOND. NG TUBE TO LOW INTERMITTENT SUCTION, DRAINING BROWNISH RED FLUID. NPO AT THIS TIME. ALMARAZ DRAINING YELLOW URINE. TPN RUNNING. VITAL SIGNS STABLE. PAIN MANAGED WITH IV PAIN MEDICATION. PATIENT PLEASANT AND COOPERATIVE WITH CARE. WILL CONTINUE TO MONITOR AND REPORT TO ONCOMING RN.
[2022-02-18 05:25] LABS: BASOPHILS ABSOLUTE AUTO 0.02 K/mm3 (0.00-0.23); BASOPHILS PERCENT AUTO 0 % (0-2); EOSINOPHILS PERCENT AUTO 0 % (0-6); Hematocrit 41.3 % (37.0-53.0); Hemoglobin 13.7 g/dL (13.5-17.5); IMMATURE GRAN PERCENT AUTO 1 % (0-1); LYMPHOCYTES ABSOLUTE AUTO 1.34 K/mm3 (0.84-5.20); LYMPHOCYTES PERCENT AUTO 9 % (21-46); MONOCYTES ABSOLUTE AUTO 0.54 K/mm3 (0.16-1.47); MONOCYTES PERCENT AUTO 4 % (4-13); Mean Corpuscular HGB 30.3 pg (26.0-34.0); Mean Corpuscular HGB Conc 33.2 g/dL (31.5-36.5); Mean Corpuscular Volume 91 fL (80-100); Mean Platelet Volume 9.5 fL (9.1-12.4); NEUTROPHILS ABSOLUTE AUTO 13.29 K/mm3 (1.96-9.15); NEUTROPHILS PERCENT AUTO 87 % (41-73); Platelet Count 270 K/mm3 (150-400); RDW Coefficient Variation 12.4 % (11.7-14.2); Red Blood Cell Count 4.52 M/mm3 (4.30-5.90); White Blood Cell Count 15.29 K/mm3 (4.00-11.30)
[2022-02-18 05:55] LABS: Anion Gap 5 mmol/L (6-16); Blood Urea Nitrogen 11 mg/dL (8-24); Bun/Creatinine Ratio 14.7 (12.0-20.0); CO2, Blood 25 mmol/L (21-32); Chloride, Blood 106 mmol/L (98-108); Creatinine, Blood 0.75 mg/dL (0.60-1.20); Glomerular Filtration Rate >60 (60-); Glucose, Blood 144 mg/dL (70-99); Potassium, Blood 4.6 mmol/L (3.5-5.5); Sodium, Blood 136 mmol/L (136-145)
--- NOTE | 2022-02-18 17:25 | NUR ---
SHIFT SUMMARY POD 10 LAP APPY, POD1 EXP LAP W/ ABCESS REMOVAL. X4 LAP SITES TO ABDOMEN W/ DERMABOND, C/D/I. ABDOMEN REMAINS MOD DISTENTED & TENDER TO PALPITATION. BOWEL TONES REMAIN HYPOACTIVE. PATIENT IS NPO W/ ICE CHIPS & MEDS OK. DENIES N/V. NG TUBE IN PLACE TO LOW INTERMITENT SUCTION, CLAMPED FOR WALKS T/O DAY. MINIMAL DRAINAGE, DARK RED/BROWN & THICK THIS AM TO THIN & GREEN THIS AFTERNOON. REPORTS FLATUS ABOUT 1630 & BURPING FREQUENTLY. MINIMAL ABDOMINAL PAIN T/O SHIFT, MEDICATED PER EMAR. ALMARAZ REMIANS IN PLACE. WILL REPORT TO ONCOMING RN.
--- NOTE | 2022-02-19 04:20 | NUR ---
SHIFT SUMMARY NO ACUTE CHANGES THIS SHIFT. NGT TO LIS WITH GREEN DRAINAGE. LAP SITES TO ABD REMAIN CDI. PT REPORTS PASSING FLATUS AND DENIES NAUSEA. TPN INFUSING PER ORDERS. ALMARAZ INTACT. PT AMBULATES INDEP IN HALLS WITH SPOUSE AT SIDE. 1 MG IV DILAUDID FOR PAIN PRN. USES CALL LIGHT APPROPRIATELY.
--- NOTE | 2022-02-19 09:34 | NUR ---
DR. NEWMAN CAME IN EARLIER THIS MORNING. SHE WANTS TO HAVE PATIENT'S NG TUBE CLAMPED UNTIL THE AFTERNOON TO SEE IF HE CAN TOLERATE CLEAR LIQUID PO INTAKE WITHOUT NAUSEA/VOMITING. SO FAR PATIENT IS TOLERATING SMALL AMOUNTS OF PO INTAKE. ENCOURAGED PATIENT TO TAKE IT SLOW WITH LIQUIDS. PATIENT HAD A BM THAT WAS LOOSE WITH GREEN COLOR THIS MORNING WELL. PATIENT IS ASLEEP IN BED AT THIS TIME. AT BEDSIDE. CALL LIGHT WITHIN REACH.
--- NOTE | 2022-02-19 13:53 | NUR ---
PATIENTS NG TUBE FELL OUT. PRIOR TO FALLING OUT THE ONLY OUTPUT WAS THE PINK JELLO HE HAD FOR LUNCH. PATIENT DENIES NAUSEA/VOMITING. CALLED DR. NEWMAN AND REPORTED WHAT HAPPENED. SHE SAID TO KEEP THE NG TUBE OUT. PATIENT HAS CALL LIGHT WITHIN REACH.
--- NOTE | 2022-02-19 17:53 | NUR ---
SHIFT SUMMARY: POD 11 FOR LAP APPY, POD 2 FOR I&D PT AOX4. PAIN MANAGED WELL WITH TYLENOL. 4 LAP SITES ON ABD C/D/I. NG TUBE DISCONTINUED, TOLERATING PO INTAKE, NO COMPLAINTS OF NAUSEA OR VOMITING. HAD A SMALL BOWEL MOVEMENT THIS MORNING GREEN/LOOSE. TPN INFUSING PER ORDERS. ALMARAZ IN PLACE DRAINING YELLOW/CLEAR. PT AMBULATES IN [place] INDEPENDENTLY WITH SPOUSE. RESTING IN BED, CALL LIGHT WITHIN REACH. PLAN IS TO ADVANCE DIET TOLERATED. KEEP ENCOURAGING BOWEL MOVEMENTS AND AMBULATION
--- NOTE | 2022-02-20 03:58 | NUR ---
PT IS A&OX4, INDEPENDENT IN ROOM AND IS ABLE TO MAKE NEEDS KNOWN. POST OP DAY 3 FOR I&D AFTER LAP APPY. NO ACUTE CHANGES THIS SHIFT. PT STATES THAT THEY ONLY WANT TYLENOL FOR PAIN CONTROL, THEY DO NOT LIKE HOW NARCOTIC PAIN MEDS MAKE THEM FEEL. PT MOVING TO A REGULAR DIET, CURRENTLY ON TPN BUT WILL TRANSFER TO SOLIDS IN THE AM. ALMARAZ IS PRODUCTIVE AND WILL BE D/C'D IN THE AM. PT RESTS BETWEEN CARES BUT STATES THAT HE IS UNABLE TO SLEEP. WILL CONTINUE TO MONITOR.
--- NOTE | 2022-02-20 12:38 | NUR ---
DC SUMMARY Pt is being discharged home with his . He is a/o x 4 with no c/o pain. He has been independent in his room. His angulo was removed this morning per Dr Menjivar and he was able to void with no problem. After his ABO infused his PICC line was removed with no issue. His surgical sites are open to air but remain approximated with no s/s of infection. He is ating and drinking well. No changes were made to his medications. All the instructions were reviewed with him and his and all questions were answered. He is up getting dressed and his is here to take him home.
== END 2022-02-20 12:44 | disposition home or self-care (01) | DRG 341 ==
LOC: ER 18:23 → SURS 18:24
PROVIDERS: Emergency Medicine; Student in an Organized Health Care Education/Training Program; Surgery; ADMIT Surgery
PROC: 05HY33Z Insertion of Infusion Device into Upper Vein, Percutaneous Approach (ICD-10-PCS; 2022-02-08)
PROC: 0DTJ4ZZ Resection of Appendix, Percutaneous Endoscopic Approach (ICD-10-PCS; principal; 2022-02-08 11:15)
PROC: 0D9840Z Drainage of Small Intestine with Drainage Device, Percutaneous Endoscopic Approach (ICD-10-PCS; 2022-02-13)
DX: K57.30 Diverticulosis of large intestine without perforation or abscess without bleeding (principal); K65.0 Generalized (acute) peritonitis; K56.609 Unspecified intestinal obstruction, unspecified as to partial versus complete obstruction; K91.89 Other postprocedural complications and disorders of digestive system; K56.7 Ileus, unspecified; E03.9 Hypothyroidism, unspecified; I25.10 Atherosclerotic heart disease of native coronary artery without angina pectoris; Z20.822 Contact with and (suspected) exposure to COVID-19; E78.5 Hyperlipidemia, unspecified; N40.1 Benign prostatic hyperplasia with lower urinary tract symptoms; R33.8 Other retention of urine; I25.2 Old myocardial infarction; Z91.038 Other insect allergy status; Z91.030 Bee allergy status; Z79.899 Other long term (current) drug therapy; Y83.8 Other surgical procedures as the cause of abnormal reaction of the patient, or of later complication, without mention of misadventure at the time of the procedure
CPT/HCPCS: 0241U; 36415; 36569; 71045; 74018; 74177; 74250; 80048; 80053; 80069; 81001; 83690; 83735; 84100; 84478; 84484; 85025; 85027; 87070; 87075; 87077; 87147; 87186; 87205; 88304; 93005; 93010; 96365; 96366; 96374; 96375; 96376; 99285-25; A9270; C1751; G0378; J0295; J1100; J1170; J1200; J1650; J1885; J1940; J2250; J2270; J2370; J2405; J2543; J2550; J2704; J2765; J3010; J7030; J7050; J7120; Q9967

== ENCOUNTER 2022-05-15 06:08 | Day surgery (SDC) | payer MEDICARE ==
[~2022-05-15] VITALS: Ht 172.7 cm; Wt 81.6 kg
[~2022-05-15 06:08] MED LIST changes: +Isosorbide Mono30 MG PO; +METO25ER PO; +NITR.4SL SL; +VALACYCLOVIR1000 MG PO
== END 2022-05-15 08:19 | disposition home or self-care (01) ==
LOC: ORSCSDS 06:08
PROVIDERS: Surgery
PROC: 0DBN8ZX Excision of Sigmoid Colon, Via Natural or Artificial Opening Endoscopic, Diagnostic (ICD-10-PCS; principal; 2022-05-15 07:30)
DX: K57.30 Diverticulosis of large intestine without perforation or abscess without bleeding (principal); D12.5 Benign neoplasm of sigmoid colon; I25.10 Atherosclerotic heart disease of native coronary artery without angina pectoris; E78.5 Hyperlipidemia, unspecified; I10 Essential (primary) hypertension; E03.9 Hypothyroidism, unspecified; Z87.891 Personal history of nicotine dependence; Z79.82 Long term (current) use of aspirin; Z79.899 Other long term (current) drug therapy
CPT/HCPCS: 88305; J2704; J7120

== ENCOUNTER → 2022-12-12 | Outpatient (CLI) | payer MEDICARE | LOC: LAB SHORT 17:34 → LAB 17:34 | PROVIDERS: Physician Assistant Medical | DX: Z51.81 Encounter for therapeutic drug level monitoring (principal); Z79.899 Other long term (current) drug therapy | CPT/HCPCS: G0480 ==

== ENCOUNTER → 2023-08-07 | Outpatient (CLI) | payer MEDICARE | END | disposition home or self-care (01) | LOC: LAB 14:53 → LAB SHORT 14:53 | DX: R39.198 Other difficulties with micturition (principal) | CPT/HCPCS: 87086 ==

== ENCOUNTER 2023-11-14 09:15 | Emergency (ER) | payer MEDICARE ==
[~2023-11-14] VITALS: Ht 172.7 cm; Wt 81.7 kg
[2023-11-14] MEDS ORDERED: TAMSULOSIN HCL0.4 M1 PO (10:18)
[2023-11-14 10:45] VITALS: BP 148/136
[2023-11-14 10:53] LABS: Source, Urine Clean Catch
[2023-11-14 11:04] LABS: Appearance, Urine Clear (Clear); Bilirubin, Urine Neg (Neg); Blood, Urine 4+ (Neg); Color, Urine Yellow (P-Yellow); Glucose Qualitative, Urine Neg (Neg); Ketones, Urine 1+ (Neg); Leukocyte Esterase, Urine 1+ (Neg); Nitrite, Urine Neg (Neg); Protein, Urine 2+ (Neg); Urobilinogen, Urine NORM (Normal)
[2023-11-14 11:12] LABS: BASOPHILS ABSOLUTE AUTO 0.07 K/mm3 (0.00-0.23); BASOPHILS PERCENT AUTO 1 % (0-2); EOSINOPHILS PERCENT AUTO 1 % (0-6); Hematocrit 41.5 % (37.0-53.0); Hemoglobin 14.7 g/dL (13.5-17.5); IMMATURE GRAN ABSOLUTE AUTO 0.19 K/mm3 (0.00-0.10); IMMATURE GRAN PERCENT AUTO 2 % (0-1); LYMPHOCYTES ABSOLUTE AUTO 2.51 K/mm3 (0.84-5.20); LYMPHOCYTES PERCENT AUTO 21 % (21-46); MONOCYTES PERCENT AUTO 8 % (4-13); Mean Corpuscular HGB 31.3 pg (26.0-34.0); Mean Corpuscular HGB Conc 35.4 g/dL (31.5-36.5); Mean Corpuscular Volume 88 fL (80-100); Mean Platelet Volume 9.5 fL (9.1-12.4); NEUTROPHILS ABSOLUTE AUTO 7.95 K/mm3 (1.96-9.15); NEUTROPHILS PERCENT AUTO 68 % (41-73); Platelet Count 203 K/mm3 (150-400); RDW Coefficient Variation 12.3 % (11.7-14.2); White Blood Cell Count 11.72 K/mm3 (4.00-11.30)
[2023-11-14 11:27] LABS: Albumin, Blood 3.1 g/dL (3.4-5.0); Albumin/Globulin Ratio 0.7 (0.8-1.8); Bilirubin, Total 0.9 mg/dL (0.1-1.0); Bun/Creatinine Ratio 18.1 (12.0-20.0); Calcium, Blood 9.1 mg/dL (8.5-10.1); Creatinine, Blood 0.77 mg/dL (0.60-1.20); Globulin, Blood 4.2 g/dL (2.2-4.0); Potassium, Blood 4.1 mmol/L (3.5-5.5); Total Protein, Blood 7.3 g/dL (6.4-8.2)
[2023-11-14 12:14] LABS: Bacteria Rare /hpf; Squamous Epithelial Cells Rare /hpf (Few)
[2023-11-14] MEDS ORDERED: CEPH500 PO (12:53)
[2023-11-14] MEDS ORDERED: DOC250 PO (12:57)
== END 2023-11-14 13:54 | disposition home or self-care (01) ==
LOC: ER 09:15
PROVIDERS: Emergency Medicine
DX: N99.89 Other postprocedural complications and disorders of genitourinary system (principal); K91.89 Other postprocedural complications and disorders of digestive system; K56.7 Ileus, unspecified; N40.0 Benign prostatic hyperplasia without lower urinary tract symptoms; E03.9 Hypothyroidism, unspecified; I25.10 Atherosclerotic heart disease of native coronary artery without angina pectoris; I25.2 Old myocardial infarction; Z91.030 Bee allergy status; Z79.890 Hormone replacement therapy; Z79.82 Long term (current) use of aspirin; Z79.899 Other long term (current) drug therapy
CPT/HCPCS: 51702; 51798; 74018; 80053; 81001; 85025; 87086; 99283-25; A9270

== ENCOUNTER 2025-06-27 07:23 | Day surgery (SDC) | payer MEDICARE ==
[2025-06-27] VITALS (13 sets, daily range): BP systolic 97–138; BP diastolic 53–87
[~2025-06-27] VITALS: Ht 170.2 cm; Wt 87.6 kg
[~2025-06-27 07:23] MED LIST changes: +CEPH500 PO; +DOC250 PO; +DULCOLAX5 MG PO; +EPIPEN0.3 MG/0.3 IM; +GNP PAIN RLF P1 EACH PO; +Lisinopril2.5 MG PO; +Methocarbamol500 MG PO; -ROSU10TA PO; +ROSUVASTATIN CAL5 MG PO; +TAMSULOSIN HCL0.4 M1 PO
[2025-06-27] MEDS ORDERED: Ropivacaine 0.5% HCl/Pf 123.125 MG,EPINEPHrine HCL 0.25 MG,Ketorolac Tromethamine 15 MG... INFIL SCH (07:30)
[2025-06-27] MEDS ORDERED: Tranexamic Acid 100 ML IV SCH (07:30)
[2025-06-27] MEDS ORDERED: CeFAZolin Sodium 2,000 MG in NS 100 ML IV SCH ×2 (07:30→18:45)
[2025-06-27] MEDS ORDERED: Chlorhexidine Mouth Care 15 ML UDC MT SCH (07:30)
[2025-06-27] MEDS ORDERED: CeFAZolin Sodium 2,000 MG VIAL ONE (08:16)
[2025-06-27] MEDS ORDERED: Ondansetron HCl 2 MG / ML 2ML Vial IV PRN ×2 (08:40→10:05)
[2025-06-27] MEDS ORDERED: Albuterol 2.5 MG/3 ML VIAL INH PRN (08:45)
[2025-06-27] MEDS ORDERED: HYDROmorphone HCl/Pf 1MG SYR IV PRN ×2 (08:45→10:15)
[2025-06-27] MEDS ORDERED: FentaNYL Citrate 50 MCG/ML 2 ML Injection IV PRN ×2 (08:45)
[2025-06-27] MEDS ORDERED: Magnesium Hydroxide Conc 10 ML UDC PO PRN (10:10)
[2025-06-27] MEDS ORDERED: Metoclopramide HCl 5MG / ML 2ML Vial IV PRN (10:10)
--- NOTE | 2025-06-27 11:05 | NUR ---
06/27/25 1105 Rubia Chang PRIOR TO ARRIVING IN THE OR PATIENT RECEIVED VANCO 1GM IV IN THE PREOP SETTING. UPON ENTRY TO THE OR, ADDY LUNDBERG CRNA SUCCESSFULLY PLACED A SPINAL NERVE BLOCK AT 1030.
[2025-06-27] MEDS ORDERED: FentaNYL Citrate 50 MCG/ML 2 ML Injection ONE (11:14)
[2025-06-27] MEDS ORDERED: Ketorolac Tromethamine 15mg Vial IV SCH (12:00)
[2025-06-27] MEDS ORDERED: Labetalol HCL 5 MG/ML 4ML Injection (Single Dose) ONE (12:31)
--- NOTE | 2025-06-27 12:50 | NUR ---
ARRIVAL NOTE: PT ARRIVES TO UNIT ON BED. THIS RN AND TRANSPORTING RN VIEWED SURGICAL SITE TOGETHER. AT BEDSIDE. SEE CHARTED ASSESSMENT.
--- NOTE | 2025-06-27 15:42 | NUR ---
DISCHARGE NOTE: PIV REMOVED BEFORE DISCHARGE. PT ABLE TO VOID, EAT AND DRINK WITHOUT N/V. PT WALKING WITH WALKER DOWN THE GARRETT. PAIN MANAGED. TO TRANSPORT HOME. PT AND STATE UNDERSTANDING OF DISCHARGE INSTRUCTION AND FOLLOW UP CARE.
[2025-06-28] MEDS ORDERED: Levothyroxine Sodium 0.15 MG Tab PO SCH (09:00)
== END 2025-06-27 15:45 | disposition home or self-care (01) ==
LOC: ORSCMMR 07:23 → ORD 09:15 → ORSCMMR 09:15 → SURS 12:47 → ORSCMMR 15:45
PROVIDERS: Orthopaedic Surgery
PROC: 0SRC0JA Replacement of Right Knee Joint with Synthetic Substitute, Uncemented, Open Approach (ICD-10-PCS; principal; 2025-06-27 09:15)
DX: M17.11 Unilateral primary osteoarthritis, right knee (principal); E78.5 Hyperlipidemia, unspecified; I25.2 Old myocardial infarction; E03.9 Hypothyroidism, unspecified; E66.9 Obesity, unspecified; Z68.30 Body mass index [BMI] 30.0-30.9, adult; Z79.899 Other long term (current) drug therapy; Z79.82 Long term (current) use of aspirin; Z85.820 Personal history of malignant melanoma of skin
CPT/HCPCS: 73560-RT; A9270; C1776; J0166; J0690; J0735; J1885; J2704; J2795; J3010; J3373; J7050; J7120